=== PATIENT | male | born 1970 | race Caucasian/White ===

== ENCOUNTER → 2017-11-27 | Outpatient (CLI) | payer BC ==
[~2017-11-27] MED LIST: FLUT16SP19 NS; PANT40TA65 PO
[2017-11-27 07:55] LABS: PLATELET COUNT, AUTOMATED 220 K/uL (150-450)
[2017-11-27 08:21] LABS: LDL CHOLESTEROL 104 mg/dl
== END ==
LOC: LAB 07:24
PROVIDERS: ATTEND Internal Medicine
DX: Z00.00 Encounter for general adult medical examination without abnormal findings (principal); K21.9 Gastro-esophageal reflux disease without esophagitis; R05 Cough
CPT/HCPCS: 36415; 81001; 82040; 82247; 82310; 82374; 82435; 82465; 82565; 82947; 83718; 84075; 84132; 84153; 84155; 84295; 84443; 84450; 84460; 84478; 84520; 85025

== ENCOUNTER 2018-07-01 01:49 | Day surgery (SDC) | payer OTHER ==
[~2018-07-01] VITALS: Ht 175.3 cm; Wt 94.8 kg
[~2018-07-01 01:49] MED LIST changes: +AZEL137S NS
[2018-07-01] MEDS: FAMOTIDINE 20 MG TAB PO ONE ×2 (06:59→07:30)
[2018-07-01 07:09] VITALS: BP 135/89
[2018-07-01] MEDS ORDERED: MIDAZOLAM 2 MG/2 ML VIAL IVP PRN (08:25)
[2018-07-01] MEDS ORDERED: NORMOSOL R SOLN(*) 1000 ML BAG 1,000 ML IV PRN (08:25)
[2018-07-01] MEDS ORDERED: LIDOCAINE/SOD BICARB 8.4% SYR ID ONE (08:25)
[2018-07-01] MEDS ORDERED: ceFAZolin(*) 2GM/D5W 50ML 50 ML IVPB ONE (08:40)
[2018-07-01] MEDS ORDERED: OXYMETAZOLINE SPRAY 15 ML BTL ONE (08:43)
[2018-07-01] MEDS ORDERED: NS(*) 0.9% 250 ML BAG 250 ML ONE (08:43)
[2018-07-01] MEDS ORDERED: BACITRACIN OINT 15 GM TUBE TP ONE (08:43)
[2018-07-01] MEDS ORDERED: MUPIROCIN 2% OINT 22 GM TUBE TP ONE (08:44)
[2018-07-01] MEDS ORDERED: LIDO/EPI 1% MDV 1:100,000 20ML INFIL ONE (08:49)
[2018-07-01] MEDS ORDERED: PROPOFOL EMUL(*) 10MG/ML 20 ML 40 ML ONE (08:52)
[2018-07-01] MEDS ORDERED: DEXAMETHASONE SOD PHOS 10MG/ML ONE (10:03)
[2018-07-01] MEDS ORDERED: ONDANSETRON 4 MG/2 ML VIAL ONE (10:03)
[2018-07-01] MEDS ORDERED: fentaNYL CITR 100 MCG/2 ML AMP ONE (10:05)
[2018-07-01] MEDS ORDERED: CEFU250T11 PO (10:14)
[2018-07-01] MEDS ORDERED: HYDR-4309 PO (10:15)
[2018-07-01 10:54] VITALS: BP_SYST 124; BP_SYST 128; BP_DIAS 92; BP_DIAS 93
--- NOTE | 2018-07-01 11:14 | OPERATIVE REPORT 1 ---
EVENT DATE: July 01, 2018 SURGEON: Robe Moya MD ANESTHESIOLOGIST: Rik Gentile M.D. ANESTHESIA: LMA. PREOPERATIVE DIAGNOSIS 1. Nasal septal deviation. 2. Bilateral inferior turbinate hypertrophy. POSTOPERATIVE DIAGNOSIS 1. Nasal septal deviation. 2. Bilateral inferior turbinate hypertrophy. PROCEDURE PERFORMED 1. Septoplasty. 2. Submucous resection of bilateral inferior turbinates. INDICATIONS FOR PROCEDURE Please refer to the preoperative note. DESCRIPTION OF PROCEDURE The patient was positively identified in the preoperative area. Risks were again explained including, but not limited to bleeding, infection, nasal septal perforation and those associated with anesthesia. He acknowledged understanding those risks. He was then brought back to the operative suite, laid supine on the operative table and anesthesia was administered. Once asleep, the patient was positioned and prepped and draped in usual sterile fashion. The nose was initially decongested with 10 cc of 1% lidocaine with epinephrine. This was infiltrated into the bilateral anterior nasal septum mucosa and along the face of the bilateral inferior turbinates. Both nasal cavities were subsequently packed with cottonoids containing Afrin solution. These were subsequently removed and nasal endoscopy was performed. This was notable for severe left nasal septal deviation. A Kemp incision was made in the left anterior nasal septal mucosa. Subperichondrial flap was elevated. The incision was then made into the anterior septal cartilage. The contralateral flap was elevated. The deviated portion of patient's nasal septal bone and cartilage was then removed. The Kemp incision was then reapproximated with interrupted Chromic suture. I then addressed the inferior turbinates. A stab incision was made at the face of the left inferior turbinate. A chondral elevator was utilized to elevate the mucosa off the underlying bone. A submucous resection was performed with the turbinate blader of the microdebrider. The stab incision was then cauterized with suction Bovie electrocautery. The contralateral inferior turbinate was addressed in a similar fashion. Bilateral nasal septal splints were then placed and secured to the anterior septum with a stitch. The patient was then turned to anesthesia for emergence. ESTIMATED BLOOD LOSS 25 cc. COMPLICATIONS None. MTDD
== END 2018-07-01 10:39 | disposition home or self-care (01) ==
LOC: OR 01:49
PROVIDERS: ATTEND Otolaryngology
DX: J34.2 Deviated nasal septum (principal); J34.3 Hypertrophy of nasal turbinates
CPT/HCPCS: 30140; 30520; J1100; J2250; J2405; J2704; J3010; J7050; J0690

== ENCOUNTER → 2018-07-31 | Outpatient (CLI) | payer OTHER ==
[~2018-07-31] MED LIST changes: +CEFU250T11 PO; +HYDR-4309 PO
== END ==
LOC: LAB 16:18
PROVIDERS: ATTEND Internal Medicine
DX: K51.90 Ulcerative colitis, unspecified, without complications (principal)
CPT/HCPCS: 36415; 82040; 82247; 82310; 82374; 82435; 82565; 82947; 84075; 84132; 84155; 84295; 84450; 84460; 84520; 86677; 87338

== ENCOUNTER → 2018-08-06 | Outpatient (CLI) | payer OTHER ==
[~2018-08-06] MED LIST changes: +BARIUM SULFATE 176 GM BTL PO ONE; +BARIUM SULFATE 340 GM POWD ONE
--- NOTE | 2018-08-06 11:32 | RADIOLOGY IMAGING REPORT ---
FACILITY: [facility] PATIENT NAME: Eliud Hadley : 1970 MR: [id number] V: [id number] EXAM DATE: ORDERING PHYSICIAN: FAROOQ POWELL TECHNOLOGIST: Location: [facility] [place] Patient: Eliud Hadley : 1970 Visit/Account:[id number] Date of Sevice: 08/06/2018 Upper GI Indication: Choking sensation Comparison: None available FINDINGS: Air contrast technique was utilized. In the AP projection, the structures of the hypopharynx are symmetric. No aspiration. An LPO positi oning in the upright, there is normal distention of the thoracic esophagus without evidence of intral uminal filling defect, stricture, ulceration or external compression. In the upright position, presb yesophagus with mild distal tertiary contractions are noted. The patient was brought 45 degrees. He was then able to lie any more flat due to a choking sensation . Live fluoroscopy at this point demonstrated tertiary contractions in the distal esophagus. Patient was rolled. Focused images of the stomach, duodenum and distal esophagus demonstrated normal rugal pattern of the stomach without intraluminal filling defect, erosion or other abnormality. Aga in, presbyesophagus is noted without additional abnormality. Mild gastroesophageal reflux into the d istal one third of the esophagus. DOSE: Air kerma was 24.7 mGy. IMPRESSION: 1. Presbyesophagus with distal esophageal tertiary contractions. 2. Mild gastroesophageal reflux. Report Dictated By: Clay Castrejon MD at 08/06/2018 11:06 AM Report E-Signed By: Clay Castrejon MD at 08/06/2018 11:29 AM WSN:[id number]
== END ==
LOC: RAD 00:29
PROVIDERS: ATTEND Internal Medicine
DX: K21.9 Gastro-esophageal reflux disease without esophagitis (principal); K22.8 Other specified diseases of esophagus
CPT/HCPCS: 74240

== ENCOUNTER 2018-11-01 14:17 | Outpatient (RCR) | payer OTHER ==
[2018-10-31 09:21] LABS: PLATELET COUNT, AUTOMATED 196 K/uL (150-450)
[~2018-11-01 14:17] MED LIST changes: -BARIUM SULFATE 176 GM BTL PO ONE; -BARIUM SULFATE 340 GM POWD ONE; -HYDR-4309 PO; +HYDR-653 PO; +NYST15CR32 TP; +RANI-320 PO
--- NOTE | 2018-11-04 13:20 | RADIOLOGY IMAGING REPORT ---
FACILITY: [facility] [place] PATIENT NAME: Eliud Hadley : 1970 MR: [id number] V: [id number] EXAM DATE: ORDERING PHYSICIAN: FAROOQ POWELL TECHNOLOGIST: Location: [facility] Patient: Eliud Hadley : 1970 Visit/Account:[id number] Date of Sevice: 11/04/2018 ABDOMEN/PELVIS W/O CONTRAST HISTORY: Hematuria TECHNIQUE: Axial images were obtained through the abdomen and pelvis without intravenous contrast . One of the following dose optimization techniques was utilized in the performance of this exam: autom ated exposure control; adjustment of the mA and/or kv according to patient size; or use of iterative reconstruction technique. Specific details can be referenced in the facility's radiology CT exam oper ational policy. CONTRAST: None COMPARISON: None. FINDINGS: Visualized lung bases: Negative. Hepatobiliary: Negative. Spleen: Negative. Adrenals: Negative. Pancreas: Negative. Kidneys/ureters/bladder: No radiopaque urinary tract calculus. No hydronephrosis. Bowel/peritoneum/mesentery: Negative. Vessels: Negative. Lymph nodes: Negative. Pelvic genitourinary: Negative. Bones/body wall: Moderate degenerative disc disease at L5-S1 with 3 mm of retrolisthesis and a compo nent of bilateral bony neural foraminal stenosis.. Other findings: None significant IMPRESSION: 1. Negative examination for a radiopaque urinary tract calculus or hydronephrosis. 2. No other acute inflammatory process identified. Report Dictated By: Frederick Marie MD at 11/04/2018 1:12 PM Report E-Signed By: Frederick Marie MD at 11/04/2018 1:16 PM WSN:[id number]
== END 2018-11-04 18:00 | disposition home or self-care (01) ==
LOC: CT 14:17 → EDSTATUS 14:17 → CT 11-04 18:00
PROVIDERS: ATTEND Internal Medicine
DX: R39.198 Other difficulties with micturition (principal)
CPT/HCPCS: 36415; 74176; 81001; 82040; 82247; 82310; 82374; 82435; 82565; 82947; 84075; 84132; 84153; 84155; 84295; 84450; 84460; 84520; 85025

== ENCOUNTER 2018-11-06 00:19 | Day surgery (SDC) | payer OTHER ==
[2018-11-06] VITALS (7 sets, daily range): BP systolic 99–128; BP diastolic 66–90
[~2018-11-06] VITALS: Ht 177.8 cm; Wt 95.3 kg
[2018-11-06] MEDS ORDERED: PROPOFOL EMUL(*) 10MG/ML 20 ML 40 ML ONE (06:57)
[2018-11-06] MEDS ORDERED: GLYCOPYRROLATE 0.2MG/ML 1 ML INJ IVP ONE (07:25)
[2018-11-06] MEDS ORDERED: NORMOSOL R SOLN(*) 1000 ML BAG 1,000 ML IV PRN (07:25)
[2018-11-06] MEDS ORDERED: LIDOCAINE/SOD BICARB 8.4% SYR ID ONE (07:25)
--- NOTE | 2018-11-06 08:37 | NUR ---
0837- PT BROUGHT TO [facility] [address], PT IS IN LL POSITION, OXY MASK IN PLACE AT 10LPM, PT MAINTAINING SATS, RESPIRATIONS AND AIRWAY, WILL CONTINUE TO MONITOR, PT UNRESPONSIVE AT TIME OF ADMIT, WILL CONTINUE TO MONITOR, PT VSS, SBAR REPORT FROM Maddison HOOPER RN AND DR. PAINTER 0838- DECREASED O2 TO 6LPM VIA OXY MASK 0848- PT STILL SLEEPING, UNRESPONSIVE, DECREASED O2 TO 4LPM VIA OXY MASK, PT MAINTAINING SATS, RESPIRATIONS AND AIRWAY 0852- PT AWAKE, DROWSY, AT BEDSIDE 0854- GLASSES ON PT, PT TOLERATING SIPS OF WATER 0900- NOTED RASH, RED NOT RAISED, ON LEFT SHOULDER AND CHEST LOCALIZED TO WHERE ECG PATCHES WERE, PT DENIES ITCHINESS, PAIN, OR SWELLING TO MOUTH OR THROAT, WILL CONTINUE TO MONITOR, PT ALSO REPORTS DOUBLE VISION 0917- SITTING VSS 0919- STANDING VSS 0922- PT UP TO RESTROOM, STEADY GAIT NOTED 09- PT REPORTS 1 VOID WITHOUT ISSUE 09- REVIEWED D/C INSTRUCTIONS WITH AND PT 0939- D/C IV WITH CATH INTACT, PRESSURE DRESSING APPLIED WITH GAUZE AND COBAND 0945- PT AMBULATORY TO [facility] ACCOMPANIED BY [facility]
--- NOTE | 2018-11-06 08:42 | Short(Outpt) Discharge Summary ---
Discharge Summary Reason for Hosp/Final Diag: (1) GERD (gastroesophageal reflux disease) Status: Chronic Hospital Course & Plan: EGD completed without problems. (2) Presbyesophagus Status: Chronic Departure Discharge to: Home, Self Care Discharge Instructions Home Meds Active Scripts NYSTATIN 117644 UNT/ML Topical Cream (NYSTATIN 442799 UNT/ML Topical Cream) 15 Gm Cream..g., 15 GM TP BID, #15 GM 1 Refill Prov:FAROOQ POWELL MD 10/31/18 Ranitidine Hcl (RANITIDINE HCL) 300 Mg Tablet, 1 TAB PO QHS, #60 TAB 6 Refills Prov:DENIZ CONTI MD 09/23/18 Pantoprazole Sodium (PANTOPRAZOLE SODIUM) 40 Mg Tablet.dr, 40 MG PO QDAY, #90 TAB.SR 3 Refills Prov:FAROOQ POWELL MD 07/31/18 Diet: Regular Activity: As Tolerated Special Instructions: Your upper endoscopy was completed without problems. Your tissues all look healthy, no inflammation, ulcers, or other signs of cancer or precancerous lesions or other abnormalities. My office will call you in the next couple of days to schedule a follow up appointment for you to see me back in my office. Problem Qualifiers (1) GERD (gastroesophageal reflux disease): Esophagitis presence: without esophagitis Qualified Codes: K21.9 - Gastro- esophageal reflux disease without esophagitis DENIZ CONTI MD Nov 06, 2018 08:42
--- NOTE | 2018-11-06 09:40 | NUR ---
0940- NOTE RASH IS STILL PRESENT, RED NON RAISED ON LEFT SHOULDER AND CHEST, APPEARS TO BE RESOLVING, PT STILL DENIES ITCHING, SWELLING IN MOUTH OR THROAT OR ANY DISCOMFORT, PT ADVISED TO KEEP AN EYE ON IT AND DO NOT HESITATE TO CALL WITH ANY QUESTIONS OR CONCERNS
== END 2018-11-06 09:45 | disposition home or self-care (01) ==
LOC: OR 00:19
PROVIDERS: ATTEND Surgery
DX: K21.9 Gastro-esophageal reflux disease without esophagitis (principal); K22.8 Other specified diseases of esophagus
CPT/HCPCS: 43235; J2704; J3490